=== PATIENT | male | born 1955 | race Caucasian/White ===

== ENCOUNTER 2020-05-26 21:54 | Inpatient (IN) | payer MEDICARE, SELFPAY ==
--- NOTE | ~2020-05-26 | CT_ITS ---
EXAMINATION: CT abdomen pelvis wo con DATE: 05/28/2020 09:52 INDICATION: Fever and diarrhea TECHNIQUE: Computed tomography (CT) of the abdomen and pelvis was performed without intravenous contr ast. Automated exposure control and iterative reconstruction technique were employed. The dose-length product was 441.25 mGy-cm. COMPARISON: None FINDINGS: Op atelectasis and trace pleural effusions at the posterior sulci of the bilateral lower lobes. Visua lized inferior heart appears normal. No pericardial effusion. Small sliding-type hiatal hernia. Liver , gallbladder, spleen, pancreas and bilateral adrenal glands are normal. Bilateral mild perinephric s tranding. No urolithiasis or hydronephrosis. Bladder is normal. There is moderate colonic diverticulo sis with a sigmoid predominance. There is no adjacent inflammatory change to suggest diverticulitis. Scattered fluid in the colon consistent with given history of diarrhea. No bowel obstruction. The neil endix is not visualized. No pericecal inflammatory change to suggest acute appendicitis. Mild prostat omegaly. Bladder is unremarkable. No free intraperitoneal gas or fluid advanced right hip osteoarthri tis. Mild osteoarthritis of the left hip and mild thoracolumbar spondylosis. IMPRESSION: 1. Scattered fluid in the colon consistent with given history of diarrhea. Correlate clinically for g astroenteritis. 2. Moderate diverticulosis without adjacent inflammatory stranding to suggest diverticulitis. 3. Bilateral perinephric stranding. Correlate with urinalysis. 4. Small sliding-type hiatal hernia. Reviewed, dictated and finalized at location A. IMPRESSION: 1. Scattered fluid in the colon consistent with given history of diarrhea. Sukhjinder elate clinically for gastroenteritis. 2. Moderate diverticulosis without adjacent inflammatory stranding to suggest d iverticulitis. 3. Bilateral perinephric stranding. Correlate with urinalysis. 4. Small sliding-type hiatal hernia.
--- NOTE | ~2020-05-26 | XR_ITS ---
EXAMINATION: XR chest 1V portable EXAM DATE: 05/26/2020 23:26 INDICATION: Fever and loss of appetite. TECHNIQUE: Portable AP frontal chest x-ray was obtained. There is no prior study for comparison. FINDINGS: The lungs are clear. There are no pleural effusions. The cardiomediastinal silhouette is within normal limits. There is no pneumothorax suspected. The bones and soft tissues are unremarkab le. IMPRESSION: No acute cardiopulmonary findings. Reviewed, dictated and finalized at location A.
--- NOTE | ~2020-05-26 | XR_ITS ---
EXAMINATION: XR chest 2V DATE: 05/28/2020 09:47 INDICATION: Fever and shortness of breath TECHNIQUE: PA and lateral views of the chest were obtained. COMPARISON: Chest radiograph dated 05/26/[address] dated 05/28/2020 FINDINGS: Blunting at the costophrenic angles and posterior sulci which could represent tiny bilateral pleural effusions and/or atelectasis. No other airspace opacities, pulmonary edema or pneumothorax. The cardi omediastinal silhouette is normal. Mild thoracic spondylosis with bridging osteophytes at multiple le vels consistent with diffuse idiopathic skeletal hyperostosis (DISH). IMPRESSION: 1. Tiny bilateral pleural effusions and/or atelectasis at the costophrenic angles and posterior sulci . Reviewed, dictated and finalized at location A. IMPRESSION: 1. Tiny bilateral pleural effusions and/or atelectasis at the costophrenic angl es and posterior sulci.
--- NOTE | ~2020-05-26 | US_ITS ---
EXAMINATION: US right upper quadrant DATE: 05/29/2020 08:58 INDICATION: Elevated liver function tests TECHNIQUE: Multiple grayscale and Doppler ultrasound images of the abdomen were obtained. COMPARISON: CT dated 05/28/2020 FINDINGS: The pancreatic head and body are normal in appearance. The pancreatic tail is not visualized. Liver has normal echogenicity and contour, with a smooth surface. No liver lesion identified. No intrahepat ic biliary duct dilation suspected. Portal venous flow was seen in the hepatopetal, normal direction and has normal Doppler waveform. A few small nonmobile echogenic polyps along the gallbladder wall th e largest measuring 5 mm at the fundus. The gallbladder is otherwise normal in appearance. There is no cholelithiasis. The common bile duct measures 5-6 mm, which is normal. Sonographic Toth sign was reported as negative by the therapeutic support staff.The visualized proximal inferior vena cava is normal. Visual ized portion of the right kidney demonstrates normal contour and echogenicity with no hydronephrosis. IMPRESSION: 1. No cholelithiasis or intra or extra hepatic biliary ductal dilation. 2. A few small gallbladder polyps, the largest measuring 5 mm at the fundus. Reviewed, dictated and finalized at location A.
[2020-05-26 21:57] VITALS: BP 112/55; PULSE 93; RESP 22; TEMP 38.6; O2SAT 100
--- NOTE | 2020-05-26 22:34 | ED.GENADULT ---
HPI - General Adult General Chief complaint: Fever Stated complaint: fever Time Seen by Provider: 05/26/20 22:06 Source: patient History of Present Illness HPI narrative: Patient is a 64 y/o male complaining fever since yesterday. He states that his temperature was up to 103.3 earlier today. He took shower prior to arrival in ED and it helped with his fever. He has poor appetite and generalized bodyache. He denies any vomiting, diarrhea, abdominal pain, chest pain, cough or SOB. He states that he was recently in [place] and he is concerned about COVID. Related Data Home Medications Medication Instructions Recorded Confirmed escitalopram oxalate 10 mg tablet 10 mg PO DAILY 09/16/19 05/27/20 metformin 500 mg tablet,extended 500 mg PO DAILY 09/16/19 05/27/20 release 24 hr simvastatin 40 mg tablet 40 mg PO DAILY 09/16/19 05/27/20 ibuprofen 800 mg tablet 800 mg PO TID PRN 10/26/19 05/27/20 Allergies Allergy/AdvReac Type Severity Reaction Status Date / Time Penicillins Allergy Unknown Unknown Verified 05/26/20 22:29 Review of Systems Constitutional: Constitutional: Reports body ache(s), Denies chills, Reports fever(s), Denies headache(s), Reports malaise, Reports poor appetite and Denies weakness Eyes: Eyes: Denies blurry vision ENT: Denies headache(s) and Denies neck pain Cardiovascular: Cardiovascular: Denies chest pain and Denies dyspnea Respiratory: Respiratory: Denies cough and Denies dyspnea Gastrointestinal: Gastrointestinal: Denies abdominal pain, Denies diarrhea, Denies nausea and Denies vomiting Genitourinary: Genitourinary: Denies hematuria and Denies dysuria Musculoskeletal: Musculoskeletal: Denies back pain and Denies neck pain Neurologic: Denies headache(s) and Denies weakness [facility] Past Medical History Medical History (Updated 05/28/20 @ 07:45 by Cindy Lockhart MD) Chronic anxiety Elevated fasting glucose Mixed hyperlipidemia Nocturia Tinea cruris Surgical History Surgical History (Updated 05/27/20 @ 13:17 by Magalys Snider PA-C) History of foot surgery Family History Family History (Updated 05/27/20 @ 13:17 by Magalys Snider PA-C) Father Family history of cardiovascular disease, Onset Age: 58 Diabetes mellitus Sibling Breast cancer Mother No problems noted. Social History Social History (Updated 05/27/20 @ 13:19 by Magalys Snider PA-C) Social History: Mr. Marroquin lives at home with his . He is independent in his ADLs. He works for [employer]. He designates his Clarisse as his surrogate decision maker and he would like to be a full code. Smoking status: Never smoker Alcohol intake: current Drinks per week: 3 Substance use: never Living arrangements: with family Gender identity (if verbalized by the patient): Male Spiritual care concerns: No Exam Const: General: no acute distress and well developed Orientation/consciousness: oriented to person, oriented to place, oriented to time and patient oriented x3 HENMT: Head: normocephalic Ears: external ears normal General nose exam: Normal external nose present Eyes: General: appearance normal, both eyes and all related structures Conjunctivae: conjunctivae normal Neck: Neck: normal visual inspection and full ROM Chest: Chest palpation & inspection: normal inspection of the chest and no tenderness Resp: Effort & Inspection: normal respiratory effort Auscultation: clear to auscultation bilaterally Cardio: Rate: regular rate Rhythm: regular rhythm GI: GI Palp: No abdominal tenderness and Yes Soft to palpation Skin: General skin exam: normal color and turgor normal Neuro: General: oriented to person, oriented to place, oriented to time and patient oriented x3 Cognition (Neuro): normal cognition Extrem: General: normal to inspection, full ROM and no pedal edema Psych: Appearance: grossly normal Mental Status: mental status gr
[2020-05-26 22:55] VITALS: BP 116/63; PULSE 84; RESP 18; O2SAT 96
[2020-05-26 23:00] LABS: Basophils Percent Auto 0.2 % (0.2-1.2); Hematocrit 39.4 % (42.0-52.0); Immature Granulocyte Absolute 0.03 K/mm3 (0.00-0.031); Immature Granulocyte Percent A 0.3 % (0-0.5); Lymphocytes Absolute Auto 0.72 K/mm3 (0.9-3.2); Lymphocytes Percent Auto 6.6 % (18.3-44.2); Mean Corpuscular Volume 87.9 fl (80-100); Mean Platelet Volume 9.1 fl (7.4-10.4); Monocytes Absolute Auto 0.5 K/mm3 (0.1-0.6); Monocytes Percent Auto 4.6 % (2.6-8.5); Neutrophils Absolute Auto 9.7 K/mm3 (1.3-6.7); Neutrophils Percent Auto 88.3 % (45.5-73.1); Platelet Count Result 187 k/mm3 (150-375); Red Blood Count 4.48 M/mm3 (4.6-6.20); Red Cell Distribution Width 13.6 % (11.5-14.5)
[2020-05-26 23:19] LABS: Alanine Aminotransferase 29 U/L (4-50); Albumin Level 4.2 g/dL (3.5-5.1); Alkaline Phosphatase 42 U/L (38-126); Aspartate Amino Transferase 32 U/L (17-59); Bilirubin,Total 0.4 mg/dL (0.2-1.3); Blood Urea Nitrogen 30 mg/dL (9-20); Calcium 8.4 mg/dL (8.4-10.2); Carbon Dioxide 26 mmol/L (22-30); Chloride 100 mmol/L (98-107); Estimated CRCL calculation 58 ml/min; Estimated Glomerular Filt Rate > 60; Glucose 128 mg/dL (75-110); Sodium 134 mmol/L (137-145)
[2020-05-26 23:20] VITALS: BP 54/28; PULSE 81; RESP 16; O2SAT 94
[2020-05-26 23:20] LABS: Lactic Acid Reflex 0.9 mmol/L (0.7-2.1)
[2020-05-26 23:22] LABS: Add Urine Microscopic? YES; Appearance Urine Clear (Clear); Bacteria Urine Trace /hpf; Bilirubin Urine Negative (Negative); Blood Urine 3+ (Negative); Color Urine Yellow (Yellow); Glucose Urine UA Negative (Negative); Ketones Urine Negative (Negative); Leukocyte Esterase Ur Negative LEU/UL (Negative); Mucus Urine Heavy /lpf; Nitrate Urine Negative (Negative); Protein Urine 1+ mg/dL (Negative); Specific Grav Ur 1.035 (1.001-1.035); Squamous Epithelial Cell Urine Rare /hpf (Few); Urobilinogen Urine Negative mg/dL (<2.0)
[2020-05-26 23:40] VITALS: BP 97/61; PULSE 86; RESP 18; O2SAT 96
[2020-05-26] MEDS: ACETAMINOPHEN 325 MG TABLET 650 MG PO (23:41)
[2020-05-27] VITALS (25 sets, daily range): BP systolic 93–127; BP diastolic 42–63; PULSE 72–93; RESP 16–20; TEMP 36.9–39.4; O2SAT 98–100; BMI 25.7
--- NOTE | 2020-05-27 01:58 | ADMGEN ---
This patient, Juan Carlos Lu, was admitted to [facility] Surg Room 325-01. Patient/family oriented to hospital policies and general routines including ID bracelet, bed and alarms, visiting hours, pain management, procedures, bathroom and other care routines, personal items, smoking policy, room service/diet, and visiting hours. Valuables list has been completed. Information on how to activate the Rapid Response Team has been discussed. Patient/Family are encouraged to report perceived risks to care and to ask questions if they do not understand what they are told or what they should do.
--- NOTE | 2020-05-27 02:00 | PC.NURSE ---
IVF'S running when taken to floor
[2020-05-27] MEDS: ACETAMINOPHEN 325 MG TABLET 650 MG PO ×3 (10:10→20:52)
[2020-05-27] MEDS: metFORMIN HCL XR 500 MG TAB.SR.24H PO (10:10)
[2020-05-27] MEDS: SIMVASTATIN 20 MG TABLET 40 MG PO (10:10)
[2020-05-27] MEDS: ESCITALOPRAM OXALATE 10 MG TABLET PO (10:11)
[2020-05-27] MEDS: LACTATED RINGERS 1,000 ML 100 ML IV CONT ×2 (10:11→20:52)
[2020-05-27 10:51] LABS: D Dimer 0.46 ug/mL (<0.48)
[2020-05-27 10:58] LABS: CRP 6.4 mg/dL (<1.0); Lactate Dehydrogenase 424 U/L (313-618)
--- NOTE | 2020-05-27 13:00 | PM.IMHP ---
H&P: HPI History of Present Illness Date/Time: 05/27/20 13:00 Chief complaint: fever, hypotension Narrative: Date of admission: 05/26/2020 Date of service: 05/27/2020 Juan Carlos Lu is a 64 year old male with a history of anxiety and hyperlipidemia who presented to the emergency department on 05/26/2020 with complaints of fever that had been ongoing for 3 days. 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 Later that evening he felt very fatigued and had a poor appetite. He began monitoring his temperature and was noted to have fever. His T-max at home was 103.2. He had recently traveled to [place] with his family on 05/13/2020, and given his recent travel and fevers, his was concerned that he may have COVID-19. This prompted him to seek emergency care. He denies shortness of breath, cough, chest pain, palpitations, nausea, vomiting, headaches, or body aches. He never lost his sense of taste or smell. He did endorse feeling very fatigued, fever, and chills, and notes that he was waking up drenched in sweat the past 2 days. He had never had night sweats prior to this onset. He denies any weight loss. He began having liquid brown stools today without foul odor or blood. He is urinating regularly and denies dysuria or hematuria. He still feels somewhat feverish and sweaty. He has not had any sick contacts that he is aware of. He reports he stays very well hydrated while he is working and drinks water and Gatorade throughout the day. He ate breakfast today and he reports this was his first meal in 2 days. He denies any feelings of anxiety. Review of Systems Review of Systems: Narrative: A 12 point review of ystems was reviewed with pertinent positives and negatives as per HPI. [facility] Past Medical History Medical History (Updated 05/27/20 @ 14:58 by Magalys Snider PA-C) Chronic anxiety Elevated fasting glucose Mixed hyperlipidemia Nocturia Tinea cruris Surgical History Surgical History (Updated 05/27/20 @ 13:17 by Magalys Snider PA-C) History of foot surgery Family History Family History (Updated 05/27/20 @ 13:17 by Magalys Snider PA-C) Father Family history of cardiovascular disease, Onset Age: 58 Diabetes mellitus Sibling Breast cancer Mother No problems noted. Social History Social History (Updated 05/27/20 @ 13:19 by Magalys Snider PA-C) Social History: Mr. Marroquin lives at home with his . He is independent in his ADLs. He works for [employer]. He designates his Clarisse as his surrogate decision maker and he would like to be a full code. Smoking status: Never smoker Alcohol intake: current Drinks per week: 3 Substance use: never Living arrangements: with family Gender identity (if verbalized by the patient): Male Spiritual care concerns: No Meds Home Medications and Allergies Home Medications Medication Instructions Recorded Confirmed Type escitalopram oxalate 10 mg tablet 10 mg PO DAILY 09/16/19 05/27/20 History metformin 500 mg tablet,extended 500 mg PO DAILY 09/16/19 05/27/20 History release 24 hr simvastatin 40 mg tablet 40 mg PO DAILY 09/16/19 05/27/20 History ibuprofen 800 mg tablet 800 mg PO TID PRN 10/26/19 05/27/20 History alprazolam 0.25 mg tablet See Rx Instructions PO TID PRN #90 03/09/20 05/27/20 Rx tablet clotrimazole-betamethasone 1 1 applic TOPICAL BID 14 Days #30 gm 04/25/20 05/27/20 Rx %-0.05 % topical cream Allergies Allergy/AdvReac Type Severity Reaction Status Date / Time Penicillins Allergy Unknown Unknown Verified 05/26/20 22:29 Vital Signs Vital Signs - 24 hr 05/26/20 21:57 05/26/20 22:55 05/26/20 23:20 Temperature 101.4 F H Pulse Rate 93 84 81 Respiratory Rate 22 H 18 16 Blood Pressure 112/55 L 116/63 54/28 L Pulse Oximetry 100 96 94 05/26/20 23:40 05/27/20 00:00 05/27/20 00:54 Te
[2020-05-27 14:10] LABS: SARS-CoV-2 RNA PCR Negative
[2020-05-27 15:42] LABS: Influenza Control Positive
[2020-05-27 15:46] LABS: Basophils Percent Auto 0.3 % (0.2-1.2); Eosinophils Percent Auto 0.1 % (0-4.4); Hematocrit 36.3 % (42.0-52.0); Immature Granulocyte Absolute 0.02 K/mm3 (0.00-0.031); Immature Granulocyte Percent A 0.2 % (0-0.5); Lymphocytes Absolute Auto 0.69 K/mm3 (0.9-3.2); Lymphocytes Percent Auto 7.6 % (18.3-44.2); Mean Corpuscular HGB Conc 33.1 g/dl (32-36); Mean Corpuscular Hemoglobin 28.8 pg (26-34); Mean Corpuscular Volume 87.3 fl (80-100); Monocytes Absolute Auto 0.4 K/mm3 (0.1-0.6); Monocytes Percent Auto 4.6 % (2.6-8.5); Neutrophils Percent Auto 87.2 % (45.5-73.1); Platelet Count Result 162 k/mm3 (150-375); Red Blood Count 4.16 M/mm3 (4.6-6.20); Red Cell Distribution Width 13.5 % (11.5-14.5); White Blood Count 9.1 K/mm3 (4.5-10.0)
[2020-05-27 15:58] LABS: Alanine Aminotransferase 68 U/L (4-50); Albumin Level 3.7 g/dL (3.5-5.1); Alkaline Phosphatase 44 U/L (38-126); Anion Gap 8 mmol/L (8-16); Aspartate Amino Transferase 91 U/L (17-59); Bilirubin,Total 0.3 mg/dL (0.2-1.3); Blood Urea Nitrogen 26 mg/dL (9-20); Carbon Dioxide 25 mmol/L (22-30); Chloride 99 mmol/L (98-107); Estimated CRCL calculation 63 ml/min; Estimated Glomerular Filt Rate > 60; Glucose 110 mg/dL (75-110); Potassium 3.8 mmol/L (3.4-5.0); Sodium 132 mmol/L (137-145)
[2020-05-27 16:03] LABS: Hemoglobin A1C 5.5 % (<5.7)
[2020-05-27 16:39] LABS: HIV 1/2 Ab P24 Ag Result Negative (Negative)
[2020-05-27 16:49] LABS: Hepatitis B Surface Antigen Negative (Negative)
[2020-05-27 16:55] LABS: HAV RESULT Negative (Negative); Hepatitis B Core IgM Result Negative (Negative)
[2020-05-27 17:06] LABS: Hepatitis C Virus Antibody Negative (Negative)
[2020-05-27] MEDS: FAMOTIDINE 20 MG TABLET PO (20:52)
[2020-05-27] MEDS: BETAMETHASONE/CLOTRIMAZOLE CR 15 GM TUBE 1 APPLIC TOPICAL (20:59)
[2020-05-27] MEDS: IBUPROFEN 600 MG TABLET PO (23:40)
[2020-05-28] VITALS (18 sets, daily range): BP systolic 92–133; BP diastolic 50–68; PULSE 74–100; RESP 16–18; TEMP 36.9–38.8; O2SAT 97–100
[2020-05-28] MEDS: ACETAMINOPHEN 325 MG TABLET 650 MG PO ×3 (05:09→18:27)
[2020-05-28] MEDS: LACTATED RINGERS 1,000 ML 100 ML IV CONT (05:12)
[2020-05-28 06:34] LABS: Basophils Percent Auto 0.6 % (0.2-1.2); Eosinophils Percent Auto 0.1 % (0-4.4); Hematocrit 35.1 % (42.0-52.0); Hemoglobin 11.6 g/dL (14.0-18.0); Immature Granulocyte Absolute 0.04 K/mm3 (0.00-0.031); Immature Granulocyte Percent A 0.6 % (0-0.5); Mean Corpuscular Hemoglobin 28.4 pg (26-34); Mean Platelet Volume 9.4 fl (7.4-10.4); Monocytes Absolute Auto 0.4 K/mm3 (0.1-0.6); Monocytes Percent Auto 5.8 % (2.6-8.5); Neutrophils Absolute Auto 5.8 K/mm3 (1.3-6.7); Neutrophils Percent Auto 86.9 % (45.5-73.1); Platelet Count Result 146 k/mm3 (150-375); Red Blood Count 4.08 M/mm3 (4.6-6.20); Red Cell Distribution Width 13.1 % (11.5-14.5); White Blood Count 6.7 K/mm3 (4.5-10.0)
[2020-05-28 06:50] LABS: Anion Gap 6 mmol/L (8-16); Blood Urea Nitrogen 21 mg/dL (9-20); CRP 7.6 mg/dL (<1.0); Calcium 7.5 mg/dL (8.4-10.2); Carbon Dioxide 25 mmol/L (22-30); Chloride 102 mmol/L (98-107); Estimated CRCL calculation 69 ml/min; Estimated Glomerular Filt Rate > 60; Glucose 108 mg/dL (75-110); Magnesium 1.9 mg/dL (1.6-2.3); Potassium 3.5 mmol/L (3.4-5.0); Sodium 133 mmol/L (137-145)
[2020-05-28] MEDS: metFORMIN HCL XR 500 MG TAB.SR.24H PO (08:29)
[2020-05-28] MEDS: BETAMETHASONE/CLOTRIMAZOLE CR 15 GM TUBE 1 APPLIC TOPICAL ×2 (08:30→17:35)
[2020-05-28] MEDS: ENOXAPARIN 40 MG/0.4 ML SYRINGE SUB-Q (08:30)
[2020-05-28] MEDS: FAMOTIDINE 20 MG TABLET PO ×2 (08:30→22:00)
[2020-05-28] MEDS: SIMVASTATIN 20 MG TABLET 40 MG PO (08:30)
[2020-05-28] MEDS: ESCITALOPRAM OXALATE 10 MG TABLET PO (08:31)
--- NOTE | 2020-05-28 09:56 | PM.IMPN ---
Progress Note: A&P Assessment and Plan (1) Gastroenteritis: Code(s): K52.9 - Noninfective gastroenteritis and colitis, unspecified Status: Acute Assessment and Plan: With 3-[address] a/p shows scattered colonic fluid and moderate diverticulosis without evidence of diverticulitis. No evidence of intra-abdominal infection. Stool cultures are pending. Will begin IV Cipro and Flagyl while awaiting cultures Add probiotic Continue gentle IV fluids (2) Fever: Qualifiers: Encounter type: initial encounter Code(s): R50.9 - Fever, unspecified Status: Acute Assessment and Plan: Tmax at home was 103.2. Patient presented with fever and poor appetite. Tmax since presentation is 103.0. Mild leukocytosis that has resolved. He does not meet SIRS criteria for sepsis. He does not have any open wounds, rashes, or skin changes. No evidence of pneumonia on CXR. Covid-19 testing was negative. UA was not convincing for UTI but does show heavy mucus. He is asymptomatic. Will repeat UA. Check urinary legionella antigen given GI symptoms. Influenza testing was negative. HIV and hepatitis panel were negative (3) Hypotension: Qualifiers: Hypotension type: unspecified hypotension type Qualified Code(s): I95.9 - Hypotension, unspecified Code(s): I95.9 - Hypotension, unspecified Status: Acute Assessment and Plan: Pressures have been quite soft. He is asymptomatic. He states his blood pressures are usually on the low end of normal. He appears euvolemic and is not orthostatic. Continue IV fluids. Check orthostatics each shift. Continue closely monitoring blood pressures. Workup pending for infectious etiology as above. (4) Elevated fasting glucose: Code(s): R73.01 - Impaired fasting glucose Status: Acute Assessment and Plan: A1c is 5.5. He has been on metformin for several years as he was told he had borderline diabetes. Continue metformin (5) Mixed hyperlipidemia: Code(s): E78.2 - Mixed hyperlipidemia Status: Acute Assessment and Plan: continue simvastatin Subjective Date/time seen: 05/28/20 09:56 Interval history: Date of service: 06/09/2020 He is feeling about the same today. He has been breaking out in sweats. He continues to endorse subjective fevers but denies chills. He is still having watery brown stool. He has very poor appetite but did eat a little bit of his breakfast this morning. He denies any abdominal pain, nausea, or vomiting. He denies any respiratory symptoms including cough, shortness of breath, wheezing, WATSON, sore throat, or congestion. He has no chest pain or palpitations. He denies headache or body aches. Review of Systems Review of Systems: Narrative: A 12 point review of systems was reviewed with pertinent positives and negatives as per HPI. Exam Narrative: Exam Narrative: Mr. Marroquin is a well nourished 64 year old male who is sitting up in a chair at the bedside. He appears comfortable and is in no acute respiratory distress. HR 82, BP 102/50, RR 18, T 100.1?, 98% on room air Neuro: awake, alert and oriented x4, speech clear, no focal neuro deficits noted HEENMT: normocephalic, atraumatic, EOMI, sclerae anicteric, moist oral mucosa, tongue midline, nares patent Neck: supple, no lymphadenopathy Respiratory: clear to auscultation bilaterally, nonlabored breathing Cardio: regular rate, regular rhythm with S1-S2 Abdomen: nondistended, normoactive bowel sounds, soft, nontender Extremities: no edema, erythema, cyanosis, clubbing, or tenderness to palpation, DP pulses 2+ bilaterally Skin: no rashes or lesions, warm and dry Psych: appropriate mood and affect, judgment and insight intact Objective Data Vital Signs Vital Signs: Vital Signs - 24 hr 05/27/20 10:10 05/27/20 11:50 05/27/20 12:00 Temperature 100.6 F H
[2020-05-28] MEDS: IBUPROFEN 400 MG TABLET PO ×2 (12:57→22:00)
[2020-05-28] MEDS: metroNIDAZOLE 500 MG/ISO 100ML 500 MG/100 ML BAG 100 MG IVPB ×2 (13:25→18:26)
[2020-05-28] MEDS: CIPROFLOXACIN 200 MG/D5W 100ML 100 ML 100 MG IVPB (14:35)
[2020-05-28] MEDS: SACCHAROMYCES BOULARDII 250 MG CAPSULE PO (18:27)
[2020-05-28 18:59] LABS: Add Urine Microscopic? YES; Amorphous Sediment Urine Few; Appearance Urine Clear (Clear); Bilirubin Urine Negative (Negative); Blood Urine 3+ (Negative); Color Urine Yellow (Yellow); Glucose Urine UA 1+ mg/dL (Negative); Ketones Urine Trace mg/dL (Negative); Leukocyte Esterase Ur Negative LEU/UL (Negative); Mucus Urine Heavy /lpf; Nitrate Urine Negative (Negative); Protein Urine 2+ mg/dL (Negative); Squamous Epithelial Cell Urine Rare /hpf (Few); WBC Urine 0-3 /hpf
[2020-05-28 19:06] LABS: Specific Grav Ur 1.031 (1.001-1.035)
[2020-05-29] VITALS (13 sets, daily range): BP systolic 90–138; BP diastolic 45–74; PULSE 66–84; RESP 16–20; TEMP 36.6–37.7; O2SAT 97–100
[2020-05-29] MEDS: LACTATED RINGERS 1,000 ML 100 ML IV CONT (02:58)
[2020-05-29] MEDS: metroNIDAZOLE 500 MG/ISO 100ML 500 MG/100 ML BAG 100 MG IVPB ×4 (02:58→18:16)
[2020-05-29] MEDS: CIPROFLOXACIN 200 MG/D5W 100ML 100 ML 100 MG IVPB ×2 (04:41→15:16)
[2020-05-29 06:35] LABS: Basophils Percent Auto 0.7 % (0.2-1.2); Eosinophils Percent Auto 0.4 % (0-4.4); Hematocrit 34.4 % (42.0-52.0); Hemoglobin 11.2 g/dL (14.0-18.0); Immature Granulocyte Absolute 0.02 K/mm3 (0.00-0.031); Immature Granulocyte Percent A 0.4 % (0-0.5); Lymphocytes Absolute Auto 0.72 K/mm3 (0.9-3.2); Lymphocytes Percent Auto 16.1 % (18.3-44.2); Mean Corpuscular HGB Conc 32.6 g/dl (32-36); Mean Corpuscular Hemoglobin 28.4 pg (26-34); Mean Corpuscular Volume 87.3 fl (80-100); Mean Platelet Volume 9.7 fl (7.4-10.4); Monocytes Absolute Auto 0.4 K/mm3 (0.1-0.6); Monocytes Percent Auto 8.3 % (2.6-8.5); Neutrophils Absolute Auto 3.3 K/mm3 (1.3-6.7); Neutrophils Percent Auto 74.1 % (45.5-73.1); Platelet Count Result 133 k/mm3 (150-375); Red Blood Count 3.94 M/mm3 (4.6-6.20); Red Cell Distribution Width 13.2 % (11.5-14.5); White Blood Count 4.5 K/mm3 (4.5-10.0)
[2020-05-29 07:24] LABS: Alanine Aminotransferase 341 U/L (4-50); Albumin Level 2.9 g/dL (3.5-5.1); Alkaline Phosphatase 58 U/L (38-126); Anion Gap 3 mmol/L (8-16); Aspartate Amino Transferase 348 U/L (17-59); Bilirubin,Total 0.3 mg/dL (0.2-1.3); Blood Urea Nitrogen 20 mg/dL (9-20); CRP 13.2 mg/dL (<1.0); Calcium 7.6 mg/dL (8.4-10.2); Carbon Dioxide 28 mmol/L (22-30); Chloride 103 mmol/L (98-107); Estimated CRCL calculation 63 ml/min; Estimated Glomerular Filt Rate > 60; Glucose 116 mg/dL (75-110); Potassium 3.5 mmol/L (3.4-5.0); Sodium 134 mmol/L (137-145)
[2020-05-29] MEDS: ENOXAPARIN 40 MG/0.4 ML SYRINGE SUB-Q (08:09)
[2020-05-29] MEDS: SACCHAROMYCES BOULARDII 250 MG CAPSULE PO ×2 (08:09→16:46)
[2020-05-29] MEDS: ESCITALOPRAM OXALATE 10 MG TABLET PO (08:09)
[2020-05-29] MEDS: FAMOTIDINE 20 MG TABLET PO ×2 (08:09→21:03)
[2020-05-29] MEDS: SIMVASTATIN 20 MG TABLET 40 MG PO (08:10)
[2020-05-29] MEDS: metFORMIN HCL XR 500 MG TAB.SR.24H PO (08:10)
[2020-05-29 09:43] LABS: INR 1.4; Prothrombin Time 17.1 Seconds (11.1-14.7)
--- NOTE | 2020-05-29 14:58 | PM.IMPN ---
Progress Note: A&P Assessment and Plan (1) Gastroenteritis: Code(s): K52.9 - Noninfective gastroenteritis and colitis, unspecified Status: Acute Assessment and Plan: With 3-[address] watery [address] per day[address] a/p shows scattered colonic fluid and moderate diverticulosis without evidence of diverticulitis. No evidence of intra-abdominal infection. Stool cultures are pending. C diff toxin is negative. Continue IV Cipro and Flagyl while awaiting cultures Probiotic scheduled Continue IV fluids (2) Fever: Qualifiers: Encounter type: initial encounter Code(s): R50.9 - Fever, unspecified Status: Acute Assessment and Plan: Tmax at home was 103.2. Patient presented with fever and poor appetite. Tmax since presentation is 103.0. Mild leukocytosis that has resolved. He does not meet SIRS criteria for sepsis. He does not have any open wounds, rashes, or skin changes. He has remained afebrile today. No evidence of pneumonia on CXR. Covid-19 testing was negative. UA was not convincing for UTI but does show heavy mucus. He is asymptomatic. Check urinary legionella antigen given GI symptoms. Influenza testing was negative. HIV and hepatitis panel were negative Suspect fever is related to gastroenteritis as above. (3) Hypotension: Qualifiers: Hypotension type: unspecified hypotension type Qualified Code(s): I95.9 - Hypotension, unspecified Code(s): I95.9 - Hypotension, unspecified Status: Acute Assessment and Plan: Pressures have been quite soft. He is asymptomatic. He states his blood pressures are usually on the low end of normal. He appears euvolemic and is not orthostatic. Will give 500 ml bolus for pressure 90/45. Resume IV fluids given low pressures. Discontinued this morning as he was tolerating oral intake. Check orthostatics each shift. Continue closely monitoring blood pressures. Check morning cortisol and TSH with reflex. (4) Elevated fasting glucose: Code(s): R73.01 - Impaired fasting glucose Status: Acute Assessment and Plan: A1c is 5.5. He has been on metformin for several years as he was told he had borderline diabetes. Continue metformin (5) Mixed hyperlipidemia: Code(s): E78.2 - Mixed hyperlipidemia Status: Acute Assessment and Plan: Hold simvastatin given elevated LFTs. (6) Elevated transaminase level: Code(s): R74.0 - Nonspecific elevation of levels of transaminase and lactic acid dehydrogenase [LDH] Status: Acute Assessment and Plan: LFTs were normal at presentation and have increased. AST is 348 today and ALT is 341. Total bili and ALP are within normal limits. He has very mild thrombocytopenia. INR is within normal limits. CT shows normal liver. RUQ ultrasound Shows normal liver without evidence of liver lesion and normal portal venous flow. Hepatitis panel is negative. Hold acetaminophen and simvastatin. Discontinue prophylactic Lovenox and switch to SCDs. Check mono and CMV labs Continue to monitor LFTs closely. This may be secondary to viral infection. Subjective Date/time seen: 05/29/20 14:59 Interval history: Date of service: 05/29/2020 He is feeling better today. He continues to have 3-4 episodes of watery brown stools per day. He denies any associated abdominal pain, cramping, bloating, nausea, or vomiting. He denies any subjective fever or chills today. He feels that he is regaining his energy back. His appetite is improving and he was able to eat most of his breakfast today. He denies any positional symptoms. He denies dizziness, lightheadedness, or weakness. He has not had any headaches. He denies any episodes of bleeding or bruising. He has not had any hematuria, hematochezia, or melena. He reports he is urinating frequently secondary to IV fluids but denies any dysuria or other irr
[2020-05-29] MEDS: SODIUM CHLORIDE 0.9% IV 500 ML IV CONT (15:16)
[2020-05-29 16:25] LABS: Monoscreen Negative (Negative); Negative Monotest Control Negative (Negative); Positive Monotest Control Positive (Positive)
[2020-05-29] MEDS: SODIUM CHLORIDE 0.9% IV 1,000 ML 75 ML IV CONT (16:44)
[2020-05-29] MEDS: IBUPROFEN 400 MG TABLET PO (18:27)
[2020-05-30] MEDS: metroNIDAZOLE 500 MG/ISO 100ML 500 MG/100 ML BAG 100 MG IVPB ×2 (00:17→06:22)
[2020-05-30] MEDS: CIPROFLOXACIN 200 MG/D5W 100ML 100 ML 100 MG IVPB (01:39)
[2020-05-30 05:47] VITALS: BP 122/76; PULSE 66; RESP 18; TEMP 37.1; O2SAT 100
[2020-05-30 06:43] LABS: Basophils Percent Auto 0.8 % (0.2-1.2); Eosinophils Absolute Auto 0.1 K/mm3 (0-0.3); Eosinophils Percent Auto 2.3 % (0-4.4); Hematocrit 34.2 % (42.0-52.0); Hemoglobin 11.1 g/dL (14.0-18.0); Immature Granulocyte Absolute 0.02 K/mm3 (0.00-0.031); Immature Granulocyte Percent A 0.5 % (0-0.5); Lymphocytes Absolute Auto 1.22 K/mm3 (0.9-3.2); Lymphocytes Percent Auto 31.5 % (18.3-44.2); Mean Corpuscular HGB Conc 32.5 g/dl (32-36); Mean Corpuscular Volume 86.1 fl (80-100); Mean Platelet Volume 9.4 fl (7.4-10.4); Monocytes Absolute Auto 0.4 K/mm3 (0.1-0.6); Monocytes Percent Auto 10.9 % (2.6-8.5); Neutrophils Absolute Auto 2.1 K/mm3 (1.3-6.7); Platelet Count Result 151 k/mm3 (150-375); Red Blood Count 3.97 M/mm3 (4.6-6.20); Red Cell Distribution Width 13.3 % (11.5-14.5); White Blood Count 3.9 K/mm3 (4.5-10.0)
[2020-05-30 06:56] LABS: INR 1.4; Prothrombin Time 16.7 Seconds (11.1-14.7)
[2020-05-30 07:00] LABS: Alanine Aminotransferase 303 U/L (4-50); Albumin Level 2.8 g/dL (3.5-5.1); Alkaline Phosphatase 70 U/L (38-126); Anion Gap 5 mmol/L (8-16); Aspartate Amino Transferase 184 U/L (17-59); Bilirubin,Total 0.2 mg/dL (0.2-1.3); Blood Urea Nitrogen 16 mg/dL (9-20); Calcium 7.7 mg/dL (8.4-10.2); Carbon Dioxide 25 mmol/L (22-30); Chloride 106 mmol/L (98-107); Estimated CRCL calculation 69 ml/min; Estimated Glomerular Filt Rate > 60; Glucose 101 mg/dL (75-110); Potassium 3.3 mmol/L (3.4-5.0); Sodium 136 mmol/L (137-145)
[2020-05-30] MEDS: SODIUM CHLORIDE 0.9% IV 1,000 ML 75 ML IV CONT (09:56)
[2020-05-30] MEDS: SACCHAROMYCES BOULARDII 250 MG CAPSULE PO (09:56)
[2020-05-30] MEDS: metFORMIN HCL XR 500 MG TAB.SR.24H PO (09:57)
[2020-05-30] MEDS: ESCITALOPRAM OXALATE 10 MG TABLET PO (09:57)
[2020-05-30] MEDS: FAMOTIDINE 20 MG TABLET PO (09:57)
[2020-05-30 11:41] VITALS: BP 110/77; PULSE 67; RESP 14; TEMP 36.7; O2SAT 95
--- NOTE | 2020-05-30 15:54 | PM.DS ---
DS: Admitting Diagnosis Admitting Diagnosis Admitting Diagnosis: Fever, unspecified DS: Discharge Diagnosis Discharge Diagnosis (1) Gastroenteritis: Code(s): K52.9 - Noninfective gastroenteritis and colitis, unspecified Status: Acute Assessment and Plan: With 3-4 watery stools per day. CT a/p showed scattered colonic fluid and moderate diverticulosis without evidence of diverticulitis. No evidence of intra-abdominal infection. He was started on Cipro and Flagyl while awaiting stool cultures. He was given a probiotic and IV fluids. Diarrhea improved. Final stool cultures reviewed and were negative. Will complete the course of Cipro and Flagyl given his significant improvement while on antibiotic therapy. (2) Fever: Qualifiers: Encounter type: initial encounter Code(s): R50.9 - Fever, unspecified Status: Acute Assessment and Plan: Tmax at home was 103.2. He presented with fever and poor appetite. Tmax since presentation was 103.0. Mild leukocytosis that resolved. He did not meet SIRS criteria for sepsis. He did not have any open wounds, rashes, or skin changes. There was no evidence of pneumonia on CXR. Covid-19 testing was negative. Legionella antigen negative. UA was not convincing for UTI and he was asymptomatic. Influenza was negative. HIV and hepatitis panel were negative. [place] screen and CMV were negative. Suspect fever was related to gastroenteritis as above. Final blood cultures were negative. (3) Hypotension: Qualifiers: Hypotension type: unspecified hypotension type Qualified Code(s): I95.9 - Hypotension, unspecified Code(s): I95.9 - Hypotension, unspecified Status: Acute Assessment and Plan: Pressures were initially quite soft. He remained asymptomatic and stated his blood pressures are usually on the low end of normal. He was not orthostatic. He was started on IV fluids in the event his hypotension was secondary to volume depletion. He was adequately hydrated and blood pressures remained on the low end. TSH and cortisol were wnl. Recommended monitoring blood pressures at home and recording for review by PCP. (4) Elevated fasting glucose: Code(s): R73.01 - Impaired fasting glucose Status: Acute Assessment and Plan: A1c is 5.5. He has been on metformin for several years as he was told he had borderline diabetes. Continue metformin. (5) Mixed hyperlipidemia: Code(s): E78.2 - Mixed hyperlipidemia Status: Acute Assessment and Plan: Hold simvastatin given elevated LFTs. (6) Elevated transaminase level: Code(s): R74.0 - Nonspecific elevation of levels of transaminase and lactic acid dehydrogenase [LDH] Status: Acute Assessment and Plan: LFTs were normal at presentation and steadily increased with highest AST 348 today and ALT 341. Total bili and ALP were within normal limits. He had very mild thrombocytopenia. INR was within normal limits. CT showed normal liver. RUQ ultrasound showed normal liver without evidence of liver lesion and normal portal venous flow. Hepatitis panel was negative. LFTs declined. He will repeat a CMP in 1 week. Hold simvastatin until review and recommended to avoid acetaminophen. Suspect this elevation was secondary to infection. DS: Summary Hospital Course Reason for hospitalization: Fever Hospital Course: Date of admission: 05/26/2020 Date of discharge: 05/30/2020 Juan Carlos Lu a 64-year-old male with history of hyperlipidemia, elevated fasting glucose, and anxiety who presented to the emergency department on 05/26/2020 with complaints of fever that had been ongoing for 3 days with T-max 103.2?. He felt very fatigued and had poor appetite. He did not have any additional respiratory symptoms or GI symptoms at presentation. He had recently traveled to [place], [place] with his family and his was concerned he may have contracted COVID-19. At pre
[2020-06-01 16:08] LABS: Legionella pneumophila Ag Ur Not Detected (Not Detected)
[2020-06-01 16:27] LABS: CMV IgG Antibody <0.60 U/mL (<0.60)
[2020-06-03 12:08] LABS: CMV IgM Antibody <30.00 AU/mL (<30.00)
== END 2020-05-30 12:20 | disposition home or self-care (01) | DRG 392 ==
LOC: ANHED 05-27 00:33 → ANH3MEDSUR 05-27 00:45
PROVIDERS: Physician Assistant; Admitting Provider Internal Medicine; Emergency Provider Emergency Medicine; PCP Family Medicine; Visit Provider Family Medicine
DX: K52.9 Noninfective gastroenteritis and colitis, unspecified (principal); R50.9 Fever, unspecified; Z20.828 Contact with and (suspected) exposure to other viral communicable diseases; I95.9 Hypotension, unspecified; R73.01 Impaired fasting glucose; D72.829 Elevated white blood cell count, unspecified; E78.2 Mixed hyperlipidemia; R74.0 Nonspecific elevation of levels of transaminase and lactic acid dehydrogenase [LDH]; F41.9 Anxiety disorder, unspecified
CPT/HCPCS: 36415; 71045; 71046; 74176; 76705; 80048; 80053; 80074; 81001; 82533; 82728; 83036; 83605; 83615; 83735; 84443; 85025; 85380; 85610; 86140; 86308; 86644; 86645; 86703; 87040; 87045; 87046; 87324; 87427; 87449; 87635; 87804; 96361; 96372; 96374; 99285; A9270; C9803; G0378; G0432; J0744; J1650; J1956; J7030; J7040; J7120; U0003

== ENCOUNTER 2020-06-13 16:19 | Emergency (ER) | payer MEDICARE, SELFPAY ==
--- NOTE | ~2020-06-13 | XR_ITS ---
EXAMINATION: XR chest 1V portable 06/13/2020 17:54 INDICATION: Persistent fever PROCEDURE: AP portable chest COMPARISON: 05/28/2020 FINDINGS: The lungs are clear. The cardiomediastinal silhouette is within normal limits. There are no pleural effusions. There is no pneumothorax suspected. IMPRESSION: 1: NO ACUTE CARDIOPULMONARY DISEASE. Reviewed, dictated and finalized at location A.
[2020-06-13 16:26] VITALS: BP 125/66; PULSE 80; RESP 16; TEMP 38; O2SAT 99
--- NOTE | 2020-06-13 17:11 | ED.FEVER ---
HPI - Fever General Chief Complaint: Fever Stated Complaint: PERSISTENT FEVER Time Seen by Provider: 06/13/20 16:59 History of Present Illness HPI Narrative: He was originally seen here about 3 weeks ago for fever. At that time he was having diarrhea, no other localizing symptoms. He was empirically started on antibiotics. The remainder of his evaluation was negative. He had some improvement. After starting the antibiotics that fever returned. He says that he may still be having occasional diarrhea. He denies any other symptoms or exposures. Related Data Home Medications Medication Instructions Recorded Confirmed escitalopram oxalate 10 mg tablet 10 mg PO DAILY 09/16/19 06/08/20 metformin 500 mg tablet,extended 500 mg PO DAILY 09/16/19 06/08/20 release 24 hr simvastatin 40 mg tablet 20 mg PO DAILY 09/16/19 06/08/20 ibuprofen 800 mg tablet 800 mg PO TID PRN 10/26/19 06/08/20 Allergies Allergy/AdvReac Type Severity Reaction Status Date / Time Penicillins Allergy Unknown Unknown Verified 06/13/20 16:43 Review of Systems Review of Systems: All systems reviewed & are unremarkable except as noted in HPI and below Constitutional: Constitutional: Reports fatigue and Reports fever(s) ENT: Denies dizziness and Denies sore throat Cardiovascular: Cardiovascular: Denies chest pain Respiratory: Respiratory: Denies chest congestion, Denies cough and Denies dyspnea Gastrointestinal: Gastrointestinal: Denies abdominal pain, Reports diarrhea, Denies nausea and Denies vomiting Genitourinary: Genitourinary: Denies hematuria, Denies dysuria and Denies urinary frequency Musculoskeletal: Musculoskeletal: Denies back pain Neurologic: Denies dizziness and Denies weakness PMF Past Medical History Medical History Anemia Chronic anxiety Elevated fasting glucose Encounter for screening for other viral diseases Mixed hyperlipidemia Nocturia Tinea cruris Surgical History Surgical History History of foot surgery Family History Family History Father Family history of cardiovascular disease, Onset Age: 58 Diabetes mellitus Sibling Breast cancer Mother No problems noted. Social History Social History Social History: Mr. Marroquin lives at home with his . He is independent in his ADLs. He works for [employer] company. He designates his Clarisse as his surrogate decision maker and he would like to be a full code. Smoking status: Never smoker Alcohol intake: current Drinks per week: 3 Substance use: never Gender identity (if verbalized by the patient): Male Spiritual care concerns: No Exam Const: General: healthy appearing, no acute distress and alert Orientation/consciousness: patient oriented x3 HENMT: Head: normal to inspection Neck: Neck: normal visual inspection and no lymphadenopathy Resp: Effort & Inspection: normal respiratory effort Auscultation: clear to auscultation bilaterally, no rales, no rhonchi and no wheezes Cardio: Jugular venous distension: no JVD Rate: regular rate Rhythm: regular rhythm Heart sounds: no murmurs GI: Inspection: non-distended GI Palp: Yes Soft to palpation and No Tenderness to palpation present (GI) Skin: General skin exam: normal color Rashes: rash noted Wounds: wound noted Neuro: General: patient oriented x3, moves all extremities and No CN's II-XI intact bilaterally Speech: normal speech Extrem: General: no edema Psych: Appearance: grossly normal and well kempt Mental Status: mental status grossly normal Affect: normal affect Course Vital Signs Vital signs: Vital Signs Temperature 38.0 C H 06/13/20 16:26 Pulse Rate 80 06/13/20 16:26 Respiratory Rate 16 06/13/20 16:
[2020-06-13] MEDS: ACETAMINOPHEN 500 MG TABLET 1000 MG PO (17:54)
[2020-06-13 18:20] LABS: Basophils Absolute Auto 0.1 K/mm3 (0.0-0.1); Basophils Percent Auto 0.8 % (0.2-1.2); Eosinophils Absolute Auto 0.1 K/mm3 (0-0.3); Eosinophils Percent Auto 0.7 % (0-4.4); Hematocrit 38.9 % (42.0-52.0); Hemoglobin 12.7 g/dL (14.0-18.0); Immature Granulocyte Absolute 0.02 K/mm3 (0.00-0.031); Immature Granulocyte Percent A 0.2 % (0-0.5); Lymphocytes Absolute Auto 2.88 K/mm3 (0.9-3.2); Lymphocytes Percent Auto 33.8 % (18.3-44.2); Mean Corpuscular HGB Conc 32.6 g/dl (32-36); Mean Corpuscular Volume 85.7 fl (80-100); Mean Platelet Volume 9.6 fl (7.4-10.4); Monocytes Absolute Auto 0.5 K/mm3 (0.1-0.6); Monocytes Percent Auto 6.1 % (2.6-8.5); Neutrophils Percent Auto 58.4 % (45.5-73.1); Platelet Count Result 349 k/mm3 (150-375); Red Blood Count 4.54 M/mm3 (4.6-6.20); Red Cell Distribution Width 13.2 % (11.5-14.5); White Blood Count 8.5 K/mm3 (4.5-10.0)
[2020-06-13 18:32] LABS: INR 1.1; Lactic Acid Reflex 0.8 mmol/L (0.7-2.1)
[2020-06-13 18:32] LABS: Add Urine Microscopic? YES; Appearance Urine Clear (Clear); Bilirubin Urine Negative (Negative); Blood Urine 2+ (Negative); Color Urine Yellow (Yellow); Glucose Urine UA Negative (Negative); Ketones Urine Negative (Negative); Leukocyte Esterase Ur Negative LEU/UL (Negative); Mucus Urine Rare /lpf; Nitrate Urine Negative (Negative); Protein Urine Negative (Negative); Specific Grav Ur 1.014 (1.001-1.035); Urobilinogen Urine Negative mg/dL (<2.0); WBC Urine 0-3 /hpf
[2020-06-13 18:33] LABS: Partial Thromboplastin Time 31.4 SECONDS (22.3-36.8)
[2020-06-13 18:36] LABS: Alanine Aminotransferase 32 U/L (4-50); Albumin Level 4.3 g/dL (3.5-5.1); Alkaline Phosphatase 45 U/L (38-126); Anion Gap 8 mmol/L (8-16); Aspartate Amino Transferase 24 U/L (17-59); Bilirubin,Total 0.3 mg/dL (0.2-1.3); Blood Urea Nitrogen 20 mg/dL (9-20); CRP < 0.5 mg/dL (<1.0); Calcium 8.7 mg/dL (8.4-10.2); Carbon Dioxide 26 mmol/L (22-30); Chloride 95 mmol/L (98-107); Estimated CRCL calculation 69 ml/min; Estimated Glomerular Filt Rate > 60; Glucose 93 mg/dL (75-110); Potassium 4.4 mmol/L (3.4-5.0); Sodium 129 mmol/L (137-145)
[2020-06-13] MEDS: metroNIDAZOLE 250 MG TABLET 500 MG PO (19:52)
[2020-06-13 19:53] VITALS: BP 112/69; PULSE 68; RESP 16; TEMP 37.8
[2020-06-14 13:28] LABS: SARS-CoV-2 RNA PCR Negative
== END 2020-06-13 19:55 | disposition home or self-care (01) ==
PROVIDERS: Emergency Provider Emergency Medicine; PCP Family Medicine
DX: R50.9 Fever, unspecified (principal); Z20.828 Contact with and (suspected) exposure to other viral communicable diseases; E78.2 Mixed hyperlipidemia; D64.9 Anemia, unspecified; F41.9 Anxiety disorder, unspecified; Z79.84 Long term (current) use of oral hypoglycemic drugs
CPT/HCPCS: 36415; 71045; 80053; 81001; 83605; 85025; 85610; 85730; 86140; 87040; 87635; 99283; A9270; C9803; U0003

== ENCOUNTER 2025-04-26 14:45 | Outpatient (CLI) | payer MEDICARE, SELFPAY ==
--- NOTE | ~2025-04-26 | XR_ITS ---
EXAM: XR knee RT min 4V DATE: 04/26/2025 15:33 HISTORY: M25.561 - Chronic pain in right knee . COMPARISON: None available. FINDINGS: Decreased mineralization. No fracture or dislocation. No lytic or blastic lesion. Mild med ial and lateral joint space narrowing. Mild tricompartmental osteophytosis. Quadriceps enthesopathy. Small volume joint fluid. No erosion or periosteal change. Soft tissues within normal limits. IMPRESSION: Osteopenia. Mild tricompartmental right knee osteoarthritis. Small right knee joint effus ion. Reviewed, dictated and finalized at location K. IMPRESSION: Osteopenia. Mild tricompartmental right knee osteoarthritis. Small right knee joint effusion.
--- OUTSIDE RECORDS SUMMARY | 2025-04-26 14:51 | XMS_ITS | Clinical Summary ---
Author Organization [facility] Address [address] [place] [address] Phone Care Team Providers Care Patient Account Analyst Name Role Phone Killian Muñoz MD Primary Care Provider [phone] Allergies Active Allergy Reactions Criticality Noted Date Comments Penicillins Rash Low 09/19/2016 Medications ibuprofen (MOTRIN) 800 mg tablet Take 800 mg by mouth every 6 hours as needed for Pain, Mild. Active SIMVASTATIN ORAL Take by mouth. Activ e OTHER Provider please include Medication name, dose, route and frequency . Active metFORMIN (GLUCOPHAGE) 500 mg tablet Take 500 mg by mouth daily. 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 Gender Identity Not on file Sexual Orientation Not on file Last Filed Vital Signs Vital Sign Reading Time Taken Comments Blood Pressure 106/74 10/04/2016 10:39 AM SATELLITE INSTRUCTION FACILITATOR Pulse 65 10/04/2016 10:39 AM SATELLITE INSTRUCTION FACILITATOR Temperature 36.7 C (98.1 F) 10/04/2016 10:29 AM SATELLITE INSTRUCTION FACILITATOR Respiratory Rate 16 10/04/2016 10:39 AM SATELLITE INSTRUCTION FACILITATOR Oxygen Saturation 98% 10/04/2016 10:39 AM SATELLITE INSTRUCTION FACILITATOR Inhaled Oxygen Concentration - - Weight 74.4 kg (164 lb) 10/04/2016 8:57 AM SATELLITE INSTRUCTION FACILITATOR Height 172.7 cm (5' 8) 10/04/2016 8:57 AM SATELLITE INSTRUCTION FACILITATOR Body Mass Index 24.94 10/04/2016 8:57 AM SATELLITE INSTRUCTION FACILITATOR Plan of Treatment Health Maintenance Due Date Last Done Comments DTAP/TDAP/TD VACCINES (1 - Tdap) 1973 FIT-DNA Q 3 years 1999 FIT/FOBT Q 1 year 1999 Flex Sig/CT Colonography Q 5 years 1999 PNEUMOCOCCAL VACCINE 50+ YEARS (1 of 1 - PCV) 06/10/20 04 ZOSTER VACCINE (1 of 2) 2004 INFLUENZA VACCINE (#1) 2025 COLORECTAL SCREENING 10/04/2026 10/04/2016 Colorectal Cancer Screening 10/04/2026 RSV VACCINE (60+ or ) (1 - 1-dose 75+ series) 2029 Advance Directives For more information, please contact: [phone] * Full Code (Latest Code Status on File) Date Activated Date Inactivated Comments 10/04/2016 8:56 AM 10/04/2016 1:37 PM Care Teams Patient Account Analyst Relationship Specialty Start Date End Date Killian Muñoz MD [facility] [place] [address] PCP - General Family Practice 09/18/16
--- OUTSIDE RECORDS SUMMARY | 2025-04-26 14:52 | XMS_ITS | Data Portability ---
Author Organization [place] [facility] [employer], Main Office Address [address] [place] [address] Care Team Providers Care Learning Design Specialist Name Role Phone NOEL COLLIER Primary Care Provider Assessment Encounter Date Assessment Date Assessment LastModified by Organization Details LastModified Time 06/18/2023 06/18/2023 Patient has left foot hallux rigidus. 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 We talked about treatment options in detail today I told him I could give him a shot of cortisone but this probably would not give him good long-lasting relief. We talked about surgical options in detail today including fusion of the 1st MTP joint risks benefits limitations and alternatives to surgery itself and the recovery period. The patient elected to be referred to Dr Crenshaw, we will have him see him in the near future to consider 1st MTP joint fusion later this year. In the meantime he did want to try a course of oral prednisone to see if this helps with some of the inflammation he also has a hip issue due to advanced primary osteoarthritis here. This may help this as well. He voiced understanding and agrees above plan will call for any further problems difficulties or questions. [email or web address] Not available 06/18/2023 15:56:19 Plan of Treatment Reminders Order Date Submit Date Provider Last Modified By Organization Details Last Modified Time Details Appointments None recorded. Lab None recorded. 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 Surgeries None recorded. Imaging XR, foot 2022 023 [email or web address] [facility], [address], [place], [address], 3 15:58:44 Medication Orders prednisone 10 mg tablets in a dose pack 2022 023 [email or web address] [id number], [address], [place], [id number], 3 15:58:44 Patient TargetsNo targets recorded. Patient InstructionsNo instructions recorded. 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 [email or web address] [facility] [address], [place], [address], 06/18/2023 15:57:18 Result Notes None recorded. Problems Name Problem SNOMED Code Status Onset Date Resolution Date Notes Provider Name and Address Organization Details Recorded Time Pain in left foot 741442755771564 Active 2022 Mariana Mathews CNA [facility], [employer] 3 15:25:05 Acquired left hallux rigidus 387322128264906 Active 2022 JENNIFER Bojorquez [address], [facility] [address], [place], [address] , [employer] 3 15:57:39 Problem Notes None recorded. Procedures Surgical History Date Name Laterality Status Provider Name and Address Organization Details Recorded Time 4 Foot Surgery completed Mariana Mathews CNA [employer] 06/18/2023 15:24:14 Imaging Results None recorded. Procedure Notes None recorded. Medical Equipment None Reported. Allergies Allergen ID Allergen Name Allergen Category Reaction Reaction Severity Criticality Documentation Date Start Date Code Code System Note Provider Name and Address Organization Details Recorded Time 02820 Product containin g penicilli n (product) medicatio n hives Not available Not available 06/18/2023 [id number] [address] Mariana FreemanYEFRI clark, [place] - [facility] [employer] [facility] 3 15:21:33 Medications Name Sig Start Date Stop Date Status Note LastModified by Organization Details LastModified Time prednisone 10 mg tablet active Not Available Not Available Not Available azithromyci n 250 mg tablet TAKE 2 TABLETS BY MOUTH FOR 1 DAY THEN TAKE 1 TABLET BY MOUTH DAILY FOR 4 DAYS active Not Available Not Available No t Available ibuprofen 800 mg tablet TAKE 1 TABLET BY MOUTH THREE TIMES DAILY NEEDED FOR PAIN active Not Available Not Available No t Available fluconazole 150 mg tablet 06/18 completed Not Available Not Available Not Available sulfamethox azole 800 mg-trimetho prim 160 mg tablet TAKE 1 TABLET BY MOUTH EVERY 12 HOURS FOR 10 DAYS active Not Available Not Available No t Available sildenafil 100 mg tablet TAKE 1 TABLET BY MOUTH ONCE DAILY NEEDED FOR SEXUAL ACTIVITY. ADMINISTE R 30 MINUTES TO 4 HOURS BEFORE ACTIVITY active Not Available Not Available No t Available simvastatin 40 mg tablet TAKE 1 TABLET BY MOUTH EVERY DAY AT BEDTIME active Not Available Not Available No t Available prednisone 10 mg tablets in a dose pack Take 1 tab by mouth, 3 times a day for 3 daysTake 1 tab by mouth 2 times a day for 2 daysTake 1 tab by mouth once a day for 1 day 2022 active Not Available Not Available Not Avai lable terbinafine HCl 250 mg tablet TAKE 1 TABLET BY MOUTH DAILY UNTIL GONE active Not Available Not Available No t Available alprazolam 0.25 mg tablet TAKE 1/2 TO 1 TABLET BY MOUTH THREE TIMES DAILY NEEDED FOR ANXIETY active Not Available Not Available No t Available econazole nitrate 1 % topical cream APPLY TO THE AFFECTED AREA(S) ONCE OR TWICE DAILY UNTIL CLEAR, THEN USE NEEDED FOR FLARES active Not Available Not Available No t Available simvastatin 20 mg tablet TAKE 1 TABLET BY MOUTH EVERY DAY. 06/18 completed Not Available Not Available Not Available ketoconazol e 2 % topical cream APPLY TO THE AFFECTED AREA ONE TO TWO TIMES DAILY UNTIL CLEAR. USE FOR FLAREUPS AFTER. active Not Available Not Available No t Available metformin ER 500 mg tablet,exte nded release 24 hr TAKE 2 TABLETS BY MOUTH ONCE DAILY active Not Available Not Available No t Available escitalopra m 10 mg tablet TAKE 1 TABLET BY MOUTH ONCE DAILY active Not Available Not Available No t Available PreviDent 5000 Booster Plus 1.1 % dental paste USE TO BRUSH TEETH ONCE DAILY AT BEDTIME. SPIT OUT AFTER USE, BUT DO NOT RINSE active Not Available Not Available No t Available Vitals Date Recorded Body height Body mass index (BMI) Body weight Provider Name and Address Organization Details Last Updated DateTime 06/18/2023 175.26 cm 26.9 kg/m2 13623.81 g Mariana Mathews CNA [place] [facility] 06/18/2023 15:22:08 Social History None recorded. Functional Status Question Answer Note LastModified by Organizat ion Details LastModified Time What is your level of alcohol consumption? Occasional [email or web address] Information not available 06/18/2023 Mental Status None recorded. Family History Relationship Description Onset Age of this Age Resolved Age Notes LastModified by Organization Details LastModified Time Father Heart disease [email or web address] Not available 2022 15:23:14 Father Diabetes mellitus [email or web address] Not available 2022 15:23:36 Sister Family history of malignant neoplasm [email or web address] Not available 2022 15:23:26 Medical History No medical history recorded. Past Encounters Encounter ID Performer Location Encounter Start Date Encounter Closed Date Diagnosis/Indication Diagnosis SNOMED-CT Code Diagnosis ICD10 Code Diagnosis Note [id number] Ze Gleason MD [facility] [place] [address] [place] [address] 06/18/2023 14:46:43 06/20/2023 09:38:56 Pain in left foot [id number] 21332 M79.672 Acquired l eft hallux rigidus [id number] 07353 M20.22 Health Concerns Section Related Observation LastModified by Organization Detai ls LastModified Time None Recorded Concern Status LastModified by Organization Details LastModified Time None Recorded Advance Directives Directive None Recorded Payers Insurance Date Sequence Insurance Name Policy Number Policy Pinto Covered Member ID Pinto Member ID Guarantor Name 06/13/2023 1 [place] Juan Carlos Lu [id number] Juan Carlos Lu 02/02/2025 1 [facility] (MEDICARE REPLACEMENT/A DVANTAGE - HMO) [id number] Juan Carlos Lu [id number] Juan Carlos Velazqueztrell Notes Date Note Type Note Provider Name and Address Organization Details Recorded Time 06/18/2023 text/html The patient is a 68-year-old male who presents with a several year history of left toe pain. This is localized to the great toe at the base of the toe. He states if he stands or walks for long periods he has aching and throbbing particularly at night after a long busy day. He denies any specific trauma or injury to the toe. He has had previous problems with his toenail where he has had a lot of it removed due to previous infections but that appears to be doing okay no obvious signs of infection now. His pain is localized to the 1st MTP joint he notes stiffness that has been progressively worsening. Despite conservative measures including ibuprofen 800 mg t.i.d. his symptoms continue. He has never had this evaluated before comes in for initial evaluation treatment. Pain some days is very bad other days does not bother him a whole lot. He notes that the opposite side is also stiff but the right foot does not bother him.Past medical history sheet was reviewed and signed on intake sheet of today's date drug allergies current medications family social history previous surgical history 10 point review of systems was reviewed and discussed in detail today with the patient. JENNIFER Bojorquez [address] [facility], [facility] [address], [place], [address], [place] [facility] [employer] 06/18/2023 15:58:40
--- OUTSIDE RECORDS SUMMARY | 2025-04-26 14:52 | XMS_ITS | Data Portability ---
Author Organization [facility] [place], [facility] OFFICE Address [address] [address] Assessment No assessment recorded. Plan of Treatment Reminders Order Date Submit Date Provider Last Modified By Organization Details Last Modified Time Details Appointments None recorded. Lab None recorded. Referral None recorded. Procedures None recorded. Surgeries None recorded. Imaging XR, hip, unilateral - rm 10 2016 017 [email or web address] Not available 7 08:46:36 US, lower extremity, nonvascular 2016 017 [email or web address] Not available 7 08:46:19 Medication Orders hydrocodone 5 mg-acetamin ophen 325 mg tablet 2016 017 [id number], 2 [facility], [place], [place], [id number], 2 09:26:33 Patient TargetsNo targets recorded. Patient Instructions Encounter Date Encounter Id Patient Instructions Last Modified By Organization Details Last Modified Time 07/04/2017 [id number] We discussed his diagnoses and imaging today. We discussed the potential treatment options including medications, therapy, steroid injection, biologic treatment and surgery. After our discussion he elects to proceed with biologic treatment with bone marrow aspirate to the bilateral hips. He understands that this treatment is deemed investigational and carries no guarantee for success but we did discuss the potential expected outcome from the procedure. We will get labs prior to the procedure including CBC, CMP, Testosterone, PSA, Vitamin D. Not available 07/04/2017 23:36:21 09/05/2017 [id number] we discussed gradual resumption of additional activity including his exercise program. If he has any questions or concerns he is encouraged to contact me otherwise we will plan to see him back in approximately 6 months as he did have some mild osteoarthritis of his knee as well. If he has any worsening before then he is urged to let us know. Not available 09/05/2017 14:30:02 Reason for Referral None Reported. Results Created Date Observation Date Name Description Value Unit Range Abnormal Flag Note LastModifiedBy Organization Detail LastModifiedTime 07/04/20 17 07/08/2017 CMP, serum or plasm a glucose 99 mg/dL 65-99 normal Fasti ng refer ence inter farhat Not Available [address] [address] [place], [address], 07/08/2017 22:31:39 07/04/2007/08/2017 CMP, serum or plasm a urea nitrogen (BUN) 19 mg/dL 7-25 normal Not Available [address] [address] [place], [address], 07/08/2017 22:31:39 07/04/2007/08/2017 CMP, serum or plasm a creatinine 0.82 mg/dL 0.70-1 .25 normal For patie nts >49 years of age, the refer ence limit for Cremarco invalarie is appro ximat deana 13% highe r for peopl e ident ified as Afric an-Am gabriela n. Not Available [facility] [address] [address] [place], [address], 07/08/2017 22:31:39 07/04/2007/08/2017 CMP, serum or plasm a eGFR non-afr. marshallese 94 mL/mi n/1.7 3m2 > or = 60 normal Not Available [address] [address] [place], [address], 07/08/2017 22:31:39 07/04/2007/08/2017 CMP, serum or plasm a eGFR 109 mL/mi n/1.7 3m2 > or = 60 normal Not Available [address] [address] [place], [address], 07/08/2017 22:31:39 07/04/20 17 07/08/2017 CMP, serum or plasm a BUN/creatini ne ratio NOT APPLIC ABLE (calc ) 6-22 Not Available [address], [address], 07/08/2017 22:31:39 07/04/20 17 07/08/2017 CMP, serum or plasm a sodium 140 mmol/ L 135-14 6 normal Not Available [address], [address], 07/08/2017 22:31:39 07/04/2007/08/2017 CMP, serum or plasm a potassium 4.2 mmol/ L 3.5-5. 3 normal Not Available [address], [address], 07/08/2017 22:31:39 07/04/2007/08/2017 CMP, serum or plasm a chloride 105 mmol/ L 98-110 normal Not Available [address], [address], 07/08/2017 22:31:39 07/04/2007/08/2017 CMP, serum or plasm a carbon dioxide 29 mmol/ L 20-31 normal Not Available [address], [address], 07/08/2017 22:31:39 07/04/2007/08/2017 CMP, serum or plasm a calcium 9.3 mg/dL 8.6-10 .3 normal Not Available [address], [address], 07/08/2017 22:31:39 07/04/2007/08/2017 CMP, serum or plasm a protein, total 6.9 g/dL 6.1-8. 1 normal Not Available [address], [address], 07/08/2017 22:31:39 07/04/20 17 07/08/2017 CMP, serum or plasm a albumin 4.5 g/dL 3.6-5. 1 normal Not Available [address], [address], 07/08/2017 22:31:39 07/04/20 17 07/08/2017 CMP, serum or plasm a globulin 2.4 g/dL_ (calc ) 1.9-3. 7 normal Not Available [address], [address], 07/08/2017 22:31:39 07/04/20 17 07/08/2017 CMP, serum or plasm a albumin/glob ulin ratio 1.9 (calc ) 1.0-2. 5 normal Not Available [address], [address], 07/08/2017 22:31:39 07/04/20 17 07/08/2017 CMP, serum or plasm a bilirubin, total 0.4 mg/dL 0.2-1. 2 normal Not Available [address], [address], 07/08/2017 22:31:39 07/04/20 17 07/08/2017 CMP, serum or plasm a alkaline phosphatase 37 U/L 40-115 low Not Available [address], [address], 07/08/2017 22:31:39 07/04/20 17 07/08/2017 CMP, serum or plasm a AST 15 U/L 10-35 normal Not Available [address], [address], 07/08/2017 22:31:39 07/04/20 17 07/08/2017 CMP, serum or plasm a ALT 13 U/L 9-46 normal Not Available [address], [address], 07/08/2017 22:31:39 07/04/20 17 07/08/2017 CBC w/ auto diff white blood cell count 5.5 thous and/u L 3.8-10 .8 normal Not Available [address], [address], 07/08/2017 22:31:40 07/04/2007/08/2017 CBC w/ auto diff red blood cell count 4.59 taisha on/uL 4.20-5 .80 normal Not Available [address], [address], 07/08/2017 22:31:40 07/04/2007/08/2017 CBC w/ auto diff hemoglobin 13.2 g/dL 13.2-1 7.1 normal Not Available [address], [address], 07/08/2017 22:31:40 07/04/2007/08/2017 CBC w/ auto diff hematocrit 39.5 % 38.5-5 0.0 normal Not Available [address], [address], 07/08/2017 22:31:40 07/04/2007/08/2017 CBC w/ auto diff MCV 86.1 fL 80.0-1 00.0 normal Not Available [address], [address], 07/08/2017 22:31:40 07/04/2007/08/2017 CBC w/ auto diff MCH 28.8 pg 27.0-3 3.0 normal Not Available [address], [address], 07/08/2017 22:31:40 07/04/2007/08/2017 CBC w/ auto diff MCHC 33.4 g/dL 32.0-3 6.0 normal Not Available [address], [address], 07/08/2017 22:31:40 07/04/20 17 07/08/2017 CBC w/ auto diff RDW 12.8 % 11.0-1 5.0 normal Not Available [address], [address], 07/08/2017 22:31:40 07/04/20 17 07/08/2017 CBC w/ auto diff platelet count 253 thous and/u L 140-40 0 normal Not Available [address], [address], 07/08/2017 22:31:40 07/04/2007/08/2017 CBC w/ auto diff MPV 10.1 fL 7.5-12 .5 normal Not Available [address], [address], 07/08/2017 22:31:40 07/04/2007/08/2017 CBC w/ auto diff absolute neutrophils 2816 cells /uL 1500-7 800 normal Not Available [address], [address], 07/08/2017 22:31:40 07/04/2007/08/2017 CBC w/ auto diff absolute lymphocytes 2134 cells /uL 850-39 00 normal Not Available [address], [address], 07/08/2017 22:31:40 07/04/2007/08/2017 CBC w/ auto diff absolute monocytes 330 cells /uL 200-95 0 normal Not Available [address], [address], 07/08/2017 22:31:40 07/04/2007/08/2017 CBC w/ auto diff absolute eosinophils 171 cells /uL 15-500 normal Not Available [address], [address], 07/08/2017 22:31:40 07/04/2007/08/2017 CBC w/ auto diff absolute basophils 50 cells /uL 0-200 normal Not Available [address], [address], 07/08/2017 22:31:40 07/04/2007/08/2017 CBC w/ auto diff neutrophils 51.2 % normal Not Available [address] [place], [address], 07/08/2017 22:31:40 07/04/2007/08/2017 CBC w/ auto diff lymphocytes 38.8 % normal Not Available [address], [address], 07/08/2017 22:31:40 07/04/2007/08/2017 CBC w/ auto diff monocytes 6.0 % normal Not Available [address], [address], 07/08/2017 22:31:40 07/04/2007/08/2017 CBC w/ auto diff eosinophils 3.1 % normal Not Available [address], [address], 07/08/2017 22:31:40 07/04/2007/08/2017 CBC w/ auto diff basophils 0.9 % normal Not Available [address], [address], 07/08/2017 22:31:40 07/04/2007/08/2017 PSA, serum or plasm a PSA, total 1.5 NG/mL < or = 4.0 normal The total PSA value from this assay syste m is stand ardiz ed again st the WHO stand katlyn. The test resul t will be appro ximat deana 20% lower when jamel red to the equim olar- stand ardiz ed total PSA (Velasquez man Coult er). Jamel rison of seria l PSA resul ts shoul d be inter prete d with this fact in mind. This test was perfo rmed using the Sieme ns chemi lumin escen t metho d. Value s obtai melodie from diffe rent assay metho ds canno t be used inter phelps eably . PSA level s, regar dless of value , shoul d not be inter prete d as absol wrangell evide nce of the prese nce or absen ce of disea se. Not Available [address] [address] [place], [address], 07/08/2017 22:31:41 07/04/2007/08/2017 vitam in D, 25-hy droxy , total , serum vitamin D,25-oh,tota l,ia 53 NG/mL 30-100 normal Vitam in D Statu s 25-OH Vitam in D: Defic iency : <20 ng/mL Insuf ficie ncy: 20 - 29 ng/mL Optim al: > or = 30 ng/mL For 25-OH Vitam in D testi ng on patie nts on D2-turner pplem entat ion and patie nts for whom quant itati on of D2 and D3 fract ions is requi red, the [facility] Assur eD(TM ) 25-OH VIT D, (D2,D 3), LC/MS /MS is recom hector d: order code 58644 (torin ents >2yrs ). For more infor parvin leroy on this test, go to: http: //bran morrison stdia gnost ics.c om/fa q/FAQ 163 (This link is being provi ded for infor parvin nal/e ducat ional purpo ses only. ) Not Available [facility] [address] [place], [address], 07/08/2017 22:31:41 07/04/2007/08/2017 testo stero ne, free + total , serum testosterone , total, lc/MS/MS 336 NG/dL 250-11 00 Males : Men with clini fang signi fican t hypog onada l sympt oms and testo stero ne value s repea susyly in the range of the 200-3 00 ng/dL or less, may benef it from testo stero ne treat ment after adequ ate risk and benef its couns eling . Not Available [facility] [address] [place], [address], 07/08/2017 22:31:41 07/04/20 17 07/08/2017 testo stero ne, free + total , serum free testosterone 61.6 pg/mL 35.0-1 55.0 This test was devel oped and its jody tical perfo rmanc e toby cteri stics have been deter mined by [facility] kelsey Vallei araceli Herrera cia. It has not been clear ed or appro bjorn by the [place] Food and Drug Admin istra tion. This assay has been valid ated pursu ant to the CLIA regul ation s and is used for clini nanci purpo ses. Not Available [facility] [address] [place], [address], 07/08/2017 22:31:41 Result Notes None recorded. Problems No Known Problems Medical Equipment None Reported. Allergies Allergen ID Allergen Name Allergen Category Reaction Reaction Severity Criticality Documentation Date Start Date Code Code System Note Provider Name and Address Organization Details Recorded Time 68565 penicilli n G Not available hives Not available Not available 07/04/2017 7980 RxNorm JOANN Arrieta - [employer], [facility] 7 15:11:48 Medications Name Sig Start Date Stop Date Status Note LastModified by Organization Details LastModified Time hydrocodone 5 mg-acetamino phen 325 mg tablet Take 1 tablet every 4-6 hours by oral route as needed. 2016 active Not Available Not Available Not Avai lable diazepam 10 mg tablet Take 1 tablet(s) 1 hr PRIOR to appointment . Repeat at appointment time PRN continued anxiety 2016 active Not Available Not Available Not Avai lable simvastatin active Not Available Not A vailable Not Available metformin active Not Available Not Karey ilable Not Available Vitals Date Recorded Body height Body mass index (BMI) Body weight Heart rate Systolic And Diastolic Provider Name and Address Organization Details Last Updated DateTime 07/04/2017 172.72 cm 24.3 kg/m2 36177.78 g 50 /min 148/81 mm[Hg] Gege Xan[employer], [facility] 7 15:10:16 Date Recorded Body height Body mass index (BMI) Body weight Heart rate Systolic And Diastolic Provider Name and Address Organization Details Last Updated DateTime 07/10/2017 172.72 cm 24.3 kg/m2 48817.78 g 59 /min 134/89 mm[Hg] Gege Xanitos, [facility] 7 09:15:28 Date Recorded Body height Heart rate Systolic And Diastolic Provider Name and Address Organization Details Last Updated DateTime 09/05/2017 172.72 cm 60 /min 150/95 mm[Hg] [employer] [facility], [facility] 09/05/2017 11:47:25 Social History None recorded. Functional Status None recorded. Mental Status None recorded. Family History Relationship Description Onset Age of this Age Resolved Age Notes LastModified by Organization Details LastModified Time Father Heart disease [email or web address] Not available 06/21 15:14:17 Father Hypercholest erolemia [email or web address] Not available 06/21 15:14:49 Medical History No medical history recorded. Past Encounters Encounter ID Performer Location Encounter Start Date Encounter Closed Date Diagnosis/Indication Diagnosis SNOMED-CT Code Diagnosis ICD10 Code Diagnosis Note [id number] Yosef Fitch [facility] [address] [place] [address] 07/04/2017 14:39:48 07/04/2017 16:20:09 Pain of hip region 85863159 M25.551 Osteoarthritis of hip 23 0322785 M16.11 [id number] Yosef Fitch DO [facility] [address] [place] [address] 07/10/2017 08:45:42 07/10/2017 11:27:31 Pain of hip region 68234022 M25.551 Osteoarthritis of hip 23 9297380 M16.11 [id number] Yosef Fitch DO [facility] [address] [facility] [address] 09/05/2017 11:24:57 09/06/2017 13:36:04 Osteoarthritis of hip 307524114 M16.11 Health Concerns Section Related Observation LastModified by Organization Detai ls LastModified Time None Recorded Concern Status LastModified by Organization Details LastModified Time None Recorded Advance Directives Directive None Recorded Payers Insurance Date Sequence Insurance Name Policy Number Policy Pinto Covered Member ID Pinto Member ID Guarantor Name 06/02/2018 1 [employer] [id number] Juan Carlos Velazqueztrell [id number] Juan Carlos Lu 08/12/2017 1 [place] [id number] Juan Carlos Lu [id number] Juan Carlos Lu Notes Date Note Type Note Provider Name a wa Address Organization Details Recorded Time 07/04/2017 text/html patient is a 62-year-old male who is seen today for evaluation of hip pain lasting the last 8 months. It has gradually been on setting and slowly worsening. He describes this as intermittent sharp pains going through the groin on the right. This is not associated with any weakness, numbness, bowel or bladder complaints. 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 He does state that if he works too much of his pain is worse it is better with medications such as ibuprofen. He has also seen his primary physician: To take the ibuprofen. He has not had any additional treatments at this time. He has not had any other injuries to this hip. Pain is described as a 3/10 in severity consistently but can elevate [place] [address], [place], [address], [employer], [address] 07/05/2017 11:48:03 07/10/2017 text/html No interval mkceon ge since last visit. Patient has no new concerns [place] [address] [address] [facility] [address], [place], [address], [employer], [address] 07/10/2017 13:54:39 09/05/2017 text/html patient is a 62-year-old male who is known to me having been seen previously for this neurologic treatment to his hip. He states that he has had 90% pain relief at this point actually is feeling like he is doing much more. He has no new pain at this time. She still occasionally will have a twinge in his groin but for the most part feels that he is making throughout [place] [address], [place], [address], [facility], [facility] 09/05/2017 14:30:41
== END 2025-04-26 14:46 | disposition home or self-care (01) ==
PROVIDERS: PCP Family Medicine; Visit Provider Family Medicine
DX: M85.861 Other specified disorders of bone density and structure, right lower leg (principal); M17.11 Unilateral primary osteoarthritis, right knee
CPT/HCPCS: 73564

== ENCOUNTER 2025-06-17 15:58 | Outpatient (CLI) | payer MEDICARE, SELFPAY ==
--- NOTE | ~2025-06-17 | XR_ITS ---
EXAM/ PROCEDURE: XR hip RT min 2V - 06/17/2025 16:13 CDT HISTORY: 70 years old Male with M25.551 - Pain in right hip COMPARISON: None available TECHNIQUE: Three view(s) FINDINGS/ IMPRESSION: There are no fractures or dislocations.Joint space narrowing, subchondral sclerosis, subchondral cyst formation and osteophyte formation, compatible with severe osteoarthritis. Moderate superior displacement of the femoral neck in relation to the acetabulum likely degenerative. Reviewed, dictated and finalized at location N.
== END 2025-06-17 15:59 | disposition home or self-care (01) ==
PROVIDERS: Visit Provider Family Medicine
DX: M25.551 Pain in right hip (principal); G89.29 Other chronic pain
CPT/HCPCS: 73502